=== PATIENT | male | born 1950 | race Caucasian/White ===

== ENCOUNTER 2018-11-18 09:52 | Outpatient (CLI) | payer MEDICARE, OTHER, SELFPAY ==
[2018-11-18 10:52] LABS: ALT 22 U/L (12-78); AST 18 U/L (15-37); Albumin 3.8 g/dL (3.4-5.0); Alkaline Phosphatase 49 U/L (46-116); Anion Gap 8.9 mmol/L (3-11); BUN 17 mg/dL (7-18); Bilirubin, Total 0.7 mg/dL (0.2-1.0); CO2 28.1 mmol/L (21.0-32.0); CREATININE 0.81 mg/dL (0.70-1.30); Chloride 103 mmol/L (98-107); Glucose 106 mg/dL (70-100); Potassium 4.1 mmol/L (3.5-5.1); Sodium 140 mmol/L (136-145); Total Protein 7.4 g/dL (6.4-8.2)
[2018-11-19 09:25] LABS: PSA, Screening 2.4 ng/ml (0-6.5)
== END 2018-11-18 10:12 ==
PROVIDERS: PCP Family Medicine; Visit Provider Family Medicine
DX: R03.0 Elevated blood-pressure reading, without diagnosis of hypertension (principal); N40.1 Benign prostatic hyperplasia with lower urinary tract symptoms; N13.8 Other obstructive and reflux uropathy; Z12.5 Encounter for screening for malignant neoplasm of prostate
CPT/HCPCS: 36415; 80053; 84153

== ENCOUNTER → 2019-02-10 11:19 | Outpatient (BNVA) | payer MEDICARE, OTHER, SELFPAY | PROVIDERS: PCP Family Medicine; Referring Provider Family Medicine; Visit Provider Physical Therapy Assistant | DX: Z12.11 Encounter for screening for malignant neoplasm of colon (principal) ==

== ENCOUNTER 2019-02-24 08:03 | Day surgery (SDC) | payer MEDICARE, OTHER, SELFPAY ==
[2019-02-24] VITALS (7 sets, daily range): BP systolic 99–146; BP diastolic 65–90; PULSE 59–83; RESP 15–24; TEMP 36.4–36.6; O2SAT 96–100
--- NOTE | 2019-02-24 06:44 | W.COLOREPORT ---
Date of service: 02/24/19 Time of Service: 09:12 Colonoscopy Report Date of procedure: 02/24/19 Pre-op diagnosis general: Colon Cancer Screening Post-op diagnosis procedure note: other (colorectal polyps, external hemorrhoids, prostate nodule) Procedure: Colonoscopy with polypectomy Surgeon: Kimberli Tolbert Anesthesia proc note operative: other (General/ ASA 2/Lakesha Stack,EMILY) Estimated blood loss (mL): 5 Pathology: other (cecal polyp, ascending polyp) Complications: None Disposition: same day Indications: Mr. Tidwell is a pleasant 68 year old male who was seen in the office for a screening colonoscopy. Risks, benefits and complications have been reviewed. Complications include but are not limited to bleeding, pain, perforation, missed small lesion/polyp, sore throat, aspiration and adverse reaction to the medications. Questions were entertained and answered to their satisfaction and they wished to proceed. No guarantees were given or implied. Prep: Miralax/Dulcolax Procedure Start Time: 09:12 Procedure End Time: 10:44 Retraction Time: 24 minutes Findings: 2 sessile polyps Very tortuous colon External hemorrhoids Prostate nodule Procedure Description: After informed consent was obtained the patient was taken to the procedure room and placed in a left decubitous position. Monitors were applied and a time out was done. The patients name, date of , procedure, allergies to medications and metal in their body was reviewed. The patient was then sedated. Once sedated and comfortable a rectal exam was done. External exam revealed one external hemorrhoid. Internal exam revealed a normal sphincter tone and no palpable masses. The prostate had a palpable nodule that was hard and about 1 [address] Hutton came in and did a rectal exam and recommended follow up with a urologist. The scope was then introduced and retro-flexed. No internal hemorrhoids were identified. The scope was then advanced to the cecum with a lot of difficulty. The colon was very tortuous and had a fair amount of liquid stool in it. Pressure had to be applied to the abdomen and the patients position had to be changed to supine in order for the colonoscope to get into the cecum. It took 30 minutes to advance to the cecum. The TI and appendiceal orifice were identified. The prep was marginal. Over 1 L of fluid was used to clear out the liquid stool that was identified. After 1 L I was able to see the colon wall. The scope was then slowly retracted over 24 minutes back into the rectum. Polyps were removed with cold forceps in the cecum and ascending colon. The scope was removed and the patient was woken up and taken back to PACU in stable condition. The patient tolerated the procedure well. He did have several episodes of emesis throughout the procedure and was therefore taken to PACU for observation. Follow up: The patient should follow up in 3-5 years unless they develop changes in bowel habits or other new gastrointestinal complaints.
--- NOTE | 2019-02-24 06:45 | W.PM.DSUDISC ---
Discharge Plan Disposition Patient Disposition: HOME Condition: Good Discharge Details Reason For Visit: Colon Cancer Screening Attending Provider: Kimberli Tolbert Primary Care Provider: Matthew Islas Home Meds and New Rx's Prescriptions: Continued multivitamin 1 EACH tablet 1 ea PO DAILY RF: 0 glucosamine sulfate 2KCl 500 MG capsule 500 mg PO BID RF: 0 Combigan 5 ML drops 5 ml Ophthalmic BID Qty: 1 RF: 0 aspirin 325 mg Tablet 650 mg PO PRN PRNRF: 0 Discontinued polyethylene glycol 3350 17 gram/dose powder 238 g PO ONCE Qty: 238 RF: 0 bisacodyl [Dulcolax (bisacodyl)] 5 mg tablet,delayed release (DR/EC) 5 mg PO ONCE Qty: 4 RF: 0 Discharge Instructions Instructions: Colonoscopy (GEN), Hemorrhoids (ED) Additional Instructions: Findings: Follow up: Please call if you develop: fevers >101.5 Nausea or Vomiting Abdominal pain that is not transient DAY SURGERY UNIT POST COLONOSCOPY INSTRUCTIONS 1. Because there will be medication in your system for the next 24 hours, you may feel a little sleepy. Your coordination will be affected. Therefore: a. Do not drive or operate dangerous equipment for 24 hours. b. Do not drink alcohol beverages for 24 hours (not even beer). c. Plan to go home and rest for the day. 2. Generally there are no restrictions on your activity after a day or so has gone by, but you may feel a bit fatigued for a few days. 3 After you arrive home you may have a light meal and return to a normal diet as you can tolerate it without feeling sick to your stomach. 4. After surgery, you may feel pain or discomfort. This should be only transient, but if it persists please contact your doctor. 5. If there are any questions regarding the findings of your procedure, please feel free to contact your doctor. 6. If you are unable to contact your doctor with a problem, contact the hospital at [phone]. 7. Continue all your regular medications unless directed otherwise. I understand the above instructions and have no questions. Signature of Patient or Responsible Adult Escort Date/Time Name of Responsible Adult Escort Signature of Nurse Date/Time Activity:: Activity as Tolerated Diet:: As Tolerated Discharge Orders Discharge Orders: Discharge Order (Routine); Ordered 02/24/19 Ordered By: Kimberli Tolbert DS: Diagnosis Discharge Diagnosis (1) S/P colonoscopy: (2) External hemorrhoids: (3) Tortuous colon: (4) Colorectal polyps:
[2019-02-24] MEDS: Lactated Ringers 1,000 ML 80 ML IV (08:42)
--- NOTE | 2019-02-24 10:20 | BOWEL_PTH ---
PATIENT: Héctor Tidwell LOC: [facility] U#:[id number] AGE/SX: 68/M ROOM: RE02/24/[address]: Kimberli Tolbert MD : [id number] BED: DIS: 02/24/2019 SPEC #: [id number] RECD: 02/24/19 11:55 STATUS: VIDAL REQ #: [id number] CAROLYN: 02/24/19 10:[address]: Kimberli Tolbert DEPT: Surgical Specimen RECD BY: Gem Hickman ENTERED: 02/24/19 11:56 SP TYPE: Bowel OTHR DR: Matthew Islas MD Tissues: 1 - BIOPSY BOWEL 2 - BIOPSY BOWEL Procedures: GROSS AND MICRO LEVEL 4 Comments: [id number]
== END 2019-02-24 12:26 | disposition home or self-care (01) ==
LOC: SUR 08:05
PROVIDERS: PCP Family Medicine; Visit Provider Surgery
PROC: 0DJD8ZZ Inspection of Lower Intestinal Tract, Via Natural or Artificial Opening Endoscopic (ICD-10-PCS; CPT 45378; principal; 2019-02-24 09:15)
DX: Z12.11 Encounter for screening for malignant neoplasm of colon (principal); D12.0 Benign neoplasm of cecum; D12.2 Benign neoplasm of ascending colon; K63.89 Other specified diseases of intestine; K64.4 Residual hemorrhoidal skin tags; N40.2 Nodular prostate without lower urinary tract symptoms
CPT/HCPCS: 45380; 88305

== ENCOUNTER 2019-03-03 01:14 | Outpatient (CLI) | payer MEDICARE, OTHER, SELFPAY ==
[2019-03-03 11:25] LABS: Anion Gap 9.6 mmol/L (3-11); BUN 19 mg/dL (7-18); CO2 26.4 mmol/L (21.0-32.0); CREATININE 0.72 mg/dL (0.70-1.30); Calcium 9.1 mg/dL (8.5-10.1); Chloride 104 mmol/L (98-107); Glucose 106 mg/dL (70-100); Potassium 4.5 mmol/L (3.5-5.1); Sodium 140 mmol/L (136-145)
== END 2019-03-03 01:34 ==
PROVIDERS: PCP Family Medicine; Referring Provider Urology; Visit Provider Family Medicine
DX: C61 Malignant neoplasm of prostate (principal)
CPT/HCPCS: 36415; 80048

== ENCOUNTER 2019-04-08 19:42 | Outpatient (REF) | payer MEDICARE, OTHER, SELFPAY ==
[2019-04-08 18:57] LABS: Bilirubin Negative (Negative); Blood Small (Negative); Clarity Clear (Clear); Glucose Negative (Negative); Ketones Negative (Negative); Leukocyte Esterase Small (Negative); Nitrite Negative (Negative); Urobilinogen 0.2 EU/dL (Up TO 0.2)
[2019-04-08 19:03] LABS: Bacteria Many HPF (Negative); Crystals Negative HPF (Negative); Epithelial Cells Negative HPF (Negative); Mucus Negative (Negative); Other Cells Negative (Negative); RBC 20-50 (0-2); WBC >50 HPF (0-5)
[2019-04-08 19:04] LABS: C & S Indicated? Yes; Casts Negative LPF (Negative)
== END 2019-04-08 20:02 ==
LOC: LBN 19:42
PROVIDERS: PCP Family Medicine
DX: N39.0 Urinary tract infection, site not specified (principal)
CPT/HCPCS: 87077; 81003; 81015; 87086; 87186

== ENCOUNTER 2019-05-22 16:41 | Outpatient (REF) | payer MEDICARE, OTHER, SELFPAY ==
[2019-05-22 14:14] LABS: Bilirubin Negative (Negative); Blood Moderate (Negative); Clarity Cloudy (Clear); Glucose Negative (Negative); Ketones Negative (Negative); Leukocyte Esterase Large (Negative); Nitrite Negative (Negative); Specific Gravity 1.015 (1.005-1.025); Urobilinogen 0.2 EU/dL (Up TO 0.2); pH 5.5 (5-8)
[2019-05-22 14:29] LABS: Bacteria Few HPF (Negative); Crystals Few Calcium Oxalate HPF (Negative); Epithelial Cells Negative HPF (Negative); Mucus Negative (Negative); RBC Negative (0-2); WBC >50 HPF (0-5)
[2019-05-22 14:30] LABS: C & S Indicated? Yes; Casts Negative LPF (Negative)
== END 2019-05-22 17:01 ==
LOC: LBN 16:41
PROVIDERS: PCP Family Medicine
DX: N39.0 Urinary tract infection, site not specified (principal)
CPT/HCPCS: 87077; 81003; 81015; 87086; 87186

== ENCOUNTER 2019-06-25 12:50 | Outpatient (REF) | payer MEDICARE, OTHER, SELFPAY ==
[2019-06-25 13:10] LABS: Bilirubin Negative (Negative); Blood Moderate (Negative); Clarity Sl Cloudy (Clear); Glucose Negative (Negative); Ketones Negative (Negative); Leukocyte Esterase Small (Negative); Nitrite Negative (Negative); Urobilinogen 0.2 EU/dL (Up TO 0.2)
[2019-06-25 13:45] LABS: Bacteria Few HPF (Negative); C & S Indicated? Yes; Casts Negative LPF (Negative); Crystals Negative HPF (Negative); Epithelial Cells Negative HPF (Negative); Mucus Negative (Negative); Other Cells Rare Renal (Negative); WBC >50 HPF (0-5)
== END 2019-06-25 13:10 ==
LOC: LBN 12:50
PROVIDERS: PCP Family Medicine; Visit Provider Family Medicine
DX: R30.0 Dysuria (principal)
CPT/HCPCS: 87077; 81003; 81015; 87086; 87186

== ENCOUNTER 2019-11-13 16:19 | Outpatient (REF) | payer MEDICARE, OTHER, SELFPAY ==
[2019-11-13 17:14] LABS: Bilirubin Negative (Negative); Blood Moderate (Negative); Clarity Clear (Clear); Glucose Negative (Negative); Ketones Negative (Negative); Leukocyte Esterase Negative (Negative); Nitrite Negative (Negative); Specific Gravity 1.025 (1.005-1.025); Urobilinogen 0.2 EU/dL (Up TO 0.2)
[2019-11-13 17:31] LABS: Bacteria Negative HPF (Negative); C & S Indicated? C&S Done As Ordered; Crystals Negative HPF (Negative); Epithelial Cells Negative HPF (Negative); Mucus Negative (Negative); RBC 20-50 HPF (0-2)
== END 2019-11-13 16:39 ==
LOC: LBN 16:19
PROVIDERS: PCP Family Medicine; Visit Provider Family Medicine
DX: R30.0 Dysuria (principal)
CPT/HCPCS: 81003; 81015; 87086

== ENCOUNTER 2020-07-07 03:27 | Outpatient (CLI) | payer MEDICARE, OTHER, SELFPAY ==
[2020-07-07 21:47] LABS: PSA, Diagnostic <0.1 ng/mL (0.0-6.5)
== END 2020-07-07 03:47 ==
PROVIDERS: PCP Family Medicine; Visit Provider Family Medicine
DX: C61 Malignant neoplasm of prostate (principal)
CPT/HCPCS: 36415; 84153

== ENCOUNTER → 2022-12-14 10:45 | Outpatient (BNVA) | payer MEDICARE, OTHER, SELFPAY | PROVIDERS: PCP Nurse Practitioner Family; Referring Provider Nurse Practitioner Family; Visit Provider Physical Therapy Assistant | DX: Z12.11 Encounter for screening for malignant neoplasm of colon (principal); Z86.010 Personal history of colon polyps ==

== ENCOUNTER 2022-12-25 09:08 | Day surgery (SDC) | payer MEDICARE, OTHER, SELFPAY ==
[2022-12-25 09:15] VITALS: BP 145/88; PULSE 60; RESP 16; TEMP 36.4; O2SAT 100
[2022-12-25] MEDS: Lactated Ringers 1,000 ML 80 ML IV (09:56)
--- NOTE | 2022-12-25 09:57 | W.COLOREPORT ---
Date of service: 12/25/22 Time of Service: 11:15 Colonoscopy Report Procedure Description: Procedures performed: 1. Colonoscopy Preoperative diagnosis: Colon polyps, surveillance colonoscopy Postoperative diagnosis: Poor prep, grade 2 internal hemorrhoids, moderate external hemorrhoid Surgeon: Sony Cooley Anesthesia: Alessandro Indication for procedure: Patient is a 72-year-old man who has a history of adenomatous polyps being removed. The last colonoscopy was 3 years ago and he is due for surveillance. He is not having any symptoms. He does not have a family history of colon cancer. He does, separately have issues with hemorrhoids and this has been going on for many years. He wonders about hemorrhoid banding as an option. Findings: The prep was relatively poor, poor enough where small polyps could have been missed. Large polyps and/or tumors would not have been missed - and none were found or seen. Grade 2 internal hemorrhoids as well as an isolated, moderate external hemorrhoid were found and banded. Surveillance/follow-up recommendations: Because of the history and the poor prep, I recommend repeating in 3 years. He needs to repeat with an extended prep next time. Complications: None Blood loss: Minimal Specimens:?? None Quality of Prep:?? Poor in areas Procedure in detail: Written consent was obtained from the patient who was in agreement with the risks, benefits and indications of the procedure.? We went to the endoscopy suite and laid the patient in left lateral decubitus position.? Anesthesia was administered which was tolerated well.? A timeout was performed and when we were all in agreement we began the procedure. Digital rectal exam and visual examination was performed. Significant hemorrhoid is noted in the as well as palpable internal hemorrhoids.? A well?lubricated colonoscope was advanced without difficulty all the way to the cecum identified by the ileocecal valve, and triangular folds and appendiceal orifice.? It was then slowly withdrawn.?? Retroflexion was performed in the rectum.? The findings/interventions are noted above. The scope was then removed and the patient tolerated the procedure well. Next, a well?lubricated anoscope was introduced. Hemorrhoid banding was performed at all 3 columns per the internal hemorrhoids. The patient was relatively awake at this point and the external hemorrhoid was nontender to manipulation. I placed a rubber band on the external hemorrhoid and the patient did not have any complaints, symptoms or pain. He was then taken back to the PACU in hemodynamically stable condition and will be monitored for an hour postop to ensure he is not having significant rectal/anal discomfort. If he does, the band on the external hemorrhoid can be removed.
--- NOTE | 2022-12-25 10:54 | W.ANESPRE ---
General Info Date of Service Date Performed: 12/25/22 Height: 5 ft 10 in Weight: 82.3 kg Body Mass Index (BMI): 26.0 Surgical Procedure: Operation Date: 12/25/22 10:35 Proposed Procedure Side Surgeon p Colonoscopy Byron Cooley MD Actual Procedure Side Surgeon p Colonoscopy Byron Cooley MD Meds Allergies and Home Medications Allergies Allergy/AdvReac Type Severity Reaction Status Date / Time No Known Allergies Allergy Verified 12/25/22 09:39 Home Medication Medication Instructions Recorded glucosamine sulfate 2KCl 500 mg 500 mg PO BID 02/12/14 capsule multivitamin 1 ea PO DAILY 02/12/14 bimatoprost 0.01 % eye drops 1 drp ophthalmic (eye) DAILY #5 mL 02/23/21 (Lumigan) efinaconazole 10 % topical 1 applic topical DAILY 48 weeks #8 03/30/22 solution with applicator mL timolol 0.5 % eye drops 1 drp ophthalmic (eye) BID 03/30/22 bisacodyl 5 mg tablet,delayed 5 mg PO ONCE colonscopy bowel prep 12/14/22 release (Dulcolax (bisacodyl)) #4 tabs polyethylene glycol 3350 17 238 g PO ONCE colonoscopy prep 12/14/22 gram/dose oral powder #238 grams Current Visit Medications: Current Medications Generic Name Dose Route Start Last Admin Trade Name Freq PRN Reason Stop Dose Admin Ringer's Solution 1,000 mls @ 80 mls/hr 12/25/22 06:00 12/25/22 09:56 IV 01/21/23 23:59 80 mls/hr INFUSION MIKE Administration IV Miscellaneous Supplies 1 each 12/25/22 06:00 Iv Access IV 01/21/23 23:59 DIRECTED MIKE Sodium Chloride 0 ml 12/25/22 06:00 Normal Saline Flush 10 Ml Syr IV 01/21/23 23:59 PRN PRN Sodium Chloride 0 ml 12/25/22 06:00 Normal Saline 10 Ml Vial IJ 01/21/23 23:59 DIRECTED PRN Sterile Water 0 ml 12/25/22 06:00 Water,Injection,Sterile 10 Ml Vial IJ 01/21/23 23:59 DIRECTED PRN PFSH Active Problems Active Problems: Problem Status Onset Code Prostatitis N41.9 Palpitations R00.2 Glaucoma H40.9 Dermoid cyst 10/11/15 D36.9 Borderline hypertension 03/30/14 R03.0 Actinic keratosis L57.0 Onychomycosis B35.1 Glaucoma H40.9 Prostate cancer C61 Seborrheic keratosis L82.1 Ganglion cyst M67.40 Skin lesion L98.9 H/O prostatectomy Z90.79 Elevated blood pressure reading R03.0 External hemorrhoid, bleeding K64.4 Medical History Medical History Acute UTI Borderline hypertension Colorectal polyps tubular adenoma x1 sessile serrated adenoma x1. External hemorrhoids History of BPH Microscopic hematuria Prostate cancer Tortuous colon Surgical History Surgical History (Updated 12/25/22 @ 09:39 by Yisel June) Cystectomy from throat H/O prostatectomy History of prostate biopsy S/P colonoscopy (~02/24/19) Tobacco Smoking/Tobacco Use Status: Former Tobacco Use Passive smoking exposure: Yes Second hand exposure: Yes Alcohol Alcohol Intake: current Alcohol intake frequency: a few times a week Alcohol type: beer and wine Substance Use Substance use: Never Substance use type: does not use Vital Signs and Lab Results Vital Signs Most Recent Vital Signs in EMR: Most Recent Vital Signs Temp Pulse Resp BP Pulse Ox 36.4 C L 60 16 145/88 H 100 12/25/22 09:15 12/25/22 09:15 12/25/22 09:15 12/25/22 09:15 12/25/22 09:15 Lab Results Blood Type / Crossmatch: No Data to Display Complete Blood Count: No Data to Display Complete Metabolic Panel: No Data to Display Liver Function Panel: No Data to Display Coagulation Panel: No Data to Display Cardiac Panel: No Data to Display Arterial Blood Gas: No Data to Display Venous Blood Gas: No Data to Display Pancreas Panel: No Data to Display Thyroid Panel: No Data to Display Infectious Disease: No Data to Display Blood Cultures: No Data to Display Toxicology Panel: No Data to Display Anesthesia Assessment and Plan Anesthesia History Personal History: No History of Anesthesia Complications Family History: No Family History of Anesthesia Complications Exercise Tolerance Exercise Tolerance: Metabolic Equivalents>4 Pertinent Negatives Pertinent Negatives: No Symptoms of GERD Cardiac & Pulmonary Exam Cardiac Exam: Normal S1/S2 Heart Sounds Pulmonary Exam: Clear Bilateral Breath Sounds Implantable Cardiac Device Does patient have a Pacemaker or an ICD?: No Airway Exam Known Difficult Airway: No Mallampati Class: 1 Mouth Opening: Normal (> 3cm) Thyromental Distance: Greater than 3 cm Neck Range of Motion: Full ROM Neck Circumference: Normal Teeth Condition: Normal Dentition ASA Classification ASA Score: ASA 2 Emergency Case?: No NPO Status NPO Status: NPO Clears >2 hours, Solids >8 hours Anesthesia Plan Resuscitation Status: Full Code Anesthesia Technique: MAC Anesthesia Airway Planned: Natural Airway Monitors Used: Standard Monitors
[2022-12-25 10:55] VITALS: BMI 26.0
[2022-12-25 11:35] VITALS: BP 145/76; PULSE 63; RESP 16; TEMP 36; O2SAT 98
--- NOTE | 2022-12-25 11:39 | W.ANESPOSTOP ---
Postoperative Evaluation Date, Time and Location Date Performed: 12/25/22 Time Performed: 11:39 Patient Location: Day Surgery Unit Vital Signs Most Recent Imported Vital Signs: Most Recent Vital Signs Temp Pulse Resp BP Pulse Ox 36.4 C L 60 16 145/88 H 100 12/25/22 09:15 12/25/22 09:15 12/25/22 09:15 12/25/22 09:15 12/25/22 09:15 Assessment Mental Status: Awake (Alert & Oriented to Patient Baseline) Airway and Respiratory Function: Patent airway with normal (patient baseline) respiratory exam Cardiovascular Function: Hemodynamically Stable Hydration Status: Adequately Hydrated Nausea & Vomiting: No Nausea or Vomiting Pain: Pt. Denies Any Pain Peripheral Nerve Block: Patient did not receive a nerve block Postoperative Comments:: Severe reflux during case
[2022-12-25 11:59] VITALS: BP 130/85; PULSE 58; RESP 18; TEMP 36.3; O2SAT 100
== END 2022-12-25 12:40 | disposition home or self-care (01) ==
PROVIDERS: PCP Nurse Practitioner Family; Visit Provider Student in an Organized Health Care Education/Training Program
PROC: 0DJD8ZZ Inspection of Lower Intestinal Tract, Via Natural or Artificial Opening Endoscopic (ICD-10-PCS; CPT 45378; principal; 2022-12-25 10:30)
DX: Z12.11 Encounter for screening for malignant neoplasm of colon (principal); K64.1 Second degree hemorrhoids; K64.4 Residual hemorrhoidal skin tags; Z86.010 Personal history of colon polyps
CPT/HCPCS: 46221; G0105

== ENCOUNTER 2023-03-13 10:37 | Outpatient (REF) | payer MEDICARE, SELFPAY ==
[2023-03-13 22:37] LABS: Campylobacter PCR Negative (Negative); Salmonella PCR Negative (Negative); Shiga Toxin PCR Negative (Negative); Shigella/Enteroinvasive Ecoli Negative (Negative)
== END 2023-03-13 10:38 | disposition home or self-care (01) ==
LOC: LBN 10:37
PROVIDERS: PCP Nurse Practitioner Family; Visit Provider Family Medicine
DX: R19.7 Diarrhea, unspecified (principal)
CPT/HCPCS: 87505

== ENCOUNTER 2023-03-14 10:10 | Outpatient (REF) | payer MEDICARE, SELFPAY | END 2023-03-14 10:11 | disposition home or self-care (01) | LOC: NCHCN 10:10 | PROVIDERS: PCP Nurse Practitioner Family; Visit Provider Family Medicine | DX: R19.7 Diarrhea, unspecified (principal) | CPT/HCPCS: 87329 ==

== ENCOUNTER 2023-06-14 21:30 | Outpatient (REF) | payer MEDICARE, SELFPAY ==
[2023-06-14 21:43] LABS: Abs Immature Grans 0.04 10^3/uL (0.0-0.06); Absolute Basophil Count 0.13 10^3/uL (0.0-0.2); Absolute Eosinophil Count 0.38 10^3/uL (0.0-0.7); Absolute Lymphocyte Count 1.49 10^3/uL (1.2-3.4); Absolute Monocyte Count 0.64 10^3/uL (0.1-0.8); Absolute Neutrophil Count 5.27 10^3/uL (1.2-6.7); Basophils % 1.6; Eosinophils % 4.8; HCT 41.7 % (40.0-50.0); HGB 14.1 g/dL (13.5-17.5); Immature Grans % 0.5; Lymphocytes % 18.7; MCH 32.2 pg (27.0-33.0); MCHC 33.8 % (32.0-36.0); MCV 95 fL (80-95); MPV 8.9 fL (8.0-11.0); Monocytes % 8.1; Neutrophils % 66.3; Platelet Count 278 10^3/uL (130-400); RBC 4.38 10^6/uL (4.36-5.78); RDW 11.9 % (11.8-14.1); RDW-SD 41.4 fL; WBC 7.95 10^3/uL (4.4-10.8)
[2023-06-14 21:53] LABS: ALT 24 U/L (16-63); AST 23 U/L (15-37); Albumin 3.6 g/dL (3.4-5.0); Alkaline Phosphatase 48 U/L (46-116); Anion Gap 6.9 mmol/L (3-11); BUN 21 mg/dL (7-18); Bilirubin, Total 0.5 mg/dL (0.2-1.0); CO2 25.1 mmol/L (21.0-32.0); CREATININE 0.9 mg/dL (0.70-1.30); Calcium 9.4 mg/dL (8.5-10.1); Chloride 103 mmol/L (98-107); Estimated GFR 89.62 (mL/min/1.73m2); Glucose 117 mg/dL (74-106); Potassium 4.3 mmol/L (3.5-5.1); Sodium 135 mmol/L (136-145); Total Protein 7.6 g/dL (6.4-8.2)
[2023-06-14 21:58] LABS: Bilirubin Negative (Negative); Blood Small (Negative); Clarity Clear (Clear); Glucose Negative (Negative); Ketones Negative (Negative); Leukocyte Esterase Small (Negative); Nitrite Negative (Negative); Urobilinogen 0.2 mg/dL (Up to 0.2); pH 6.5 (5-8)
[2023-06-14 22:09] LABS: Bacteria Rare HPF (Negative); C & S Indicated? Yes; Casts Negative LPF (Negative); Crystals Negative HPF (Negative); Epithelial Cells Rare HPF (Negative); Mucus Negative (Negative)
== END 2023-06-14 21:31 | disposition home or self-care (01) ==
LOC: LBN 21:30
PROVIDERS: PCP Nurse Practitioner Family; Visit Provider Physician Assistant
DX: I10 Essential (primary) hypertension (principal); N39.0 Urinary tract infection, site not specified; R31.9 Hematuria, unspecified; Z85.46 Personal history of malignant neoplasm of prostate
CPT/HCPCS: 80053; 81003; 81015; 85025; 87086

== ENCOUNTER 2024-08-07 11:27 | Outpatient (CLI) | payer MEDICARE, SELFPAY ==
[2024-08-07 15:48] LABS: Anion Gap 8.9 mmol/L (3-11); BUN 24 mg/dL (7-18); CO2 26.1 mmol/L (21.0-32.0); CREATININE 1.2 mg/dL (0.70-1.30); Chloride 103 mmol/L (98-107); Estimated GFR 62.67 (mL/min/1.73m2); Glucose 137 mg/dL (74-106); Potassium 4.4 mmol/L (3.5-5.1); Sodium 138 mmol/L (136-145)
== END 2024-08-07 11:28 | disposition home or self-care (01) ==
LOC: LBO 11:35
PROVIDERS: PCP Nurse Practitioner Family; Visit Provider Nurse Practitioner Family
DX: R03.0 Elevated blood-pressure reading, without diagnosis of hypertension (principal)
CPT/HCPCS: 36415; 80048

== ENCOUNTER 2025-01-20 16:20 | Outpatient (REF) | payer MEDICARE, SELFPAY ==
[2025-01-20 14:12] LABS: Bilirubin Negative (Negative); Blood Moderate (Negative); Clarity Clear (Clear); Glucose Negative (Negative); Ketones Trace mg/dL (Negative); Leukocyte Esterase Moderate (Negative); Nitrite Negative (Negative); Urobilinogen 0.2 mg/dL (Up to 0.2)
[2025-01-20 14:24] LABS: Bacteria Moderate HPF (Negative); C & S Indicated? Yes; Casts Negative LPF (Negative); Crystals Negative HPF (Negative); Epithelial Cells Few HPF (Negative); Mucus Negative (Negative); WBC 20-50 HPF (0-5)
== END 2025-01-20 16:21 | disposition home or self-care (01) ==
LOC: LBN 16:20
PROVIDERS: PCP Nurse Practitioner Family; Visit Provider Nurse Practitioner Family
DX: N39.0 Urinary tract infection, site not specified (principal)
CPT/HCPCS: 87077; 81003; 81015; 87086; 87186

== ENCOUNTER 2025-04-04 11:33 | Outpatient (REF) | payer MEDICARE, SELFPAY ==
[2025-04-04 15:34] LABS: Glucose Negative (Negative)
[2025-04-04 15:47] LABS: RBC 0-2 HPF (0-2)
[2025-04-04 15:48] LABS: C & S Indicated? Yes
== END 2025-04-04 11:34 | disposition home or self-care (01) ==
LOC: LBN 11:33
PROVIDERS: PCP Nurse Practitioner Family; Visit Provider Nurse Practitioner Family
DX: R30.0 Dysuria (principal)
CPT/HCPCS: 81003; 81015; 87086